=== PATIENT | male | born 1985 | race Two or more races ===

== ENCOUNTER 2018-03-18 10:08 | Emergency (ER) | payer SELFPAY ==
[~2018-03-18] VITALS: Ht 180.3 cm; Wt 105.0 kg
[2018-03-18] MEDS ORDERED: ASPIRIN 81 MG TABLET CHEW ONE (10:42)
[2018-03-18] MEDS ORDERED: ASPI-496 PO (10:53)
[2018-03-18] MEDS ORDERED: ASPIRIN 81 MG TABLET CHEW PO ONE (11:00)
[2018-03-18] MEDS ORDERED: LIDOCAINE-MPF 1%, 5ML ONE (11:00)
[2018-03-18 11:03] LABS: BASOPHILS # (AUTO) 0.04 x10^3/uL (0-0.1); BASOPHILS % (AUTO) 0 % (0-1); EOSINOPHILS # (AUTO) 0.12 x10^3/uL (0-0.4); EOSINOPHILS % (AUTO) 1 % (1-7); LYMPHOCYTES # (AUTO) 2.62 x10^3/uL (1-3.4); LYMPHOCYTES % (AUTO) 30 % (22-44); MD NO; MEAN CORPUSCULAR HEMOGLOBIN 30.9 pg (27.5-34.5); MEAN CORPUSCULAR HGB CONC 34.5 g/dL (33.2-36.2); MEAN CORPUSCULAR VOLUME 89.4 fL (81-97); MEAN PLATELET VOLUME 7.8 fL (7.4-10.4); MONOCYTES # (AUTO) 0.54 x10^3/uL (0.2-0.8); MONOCYTES % (AUTO) 6 % (2-9); NEUTROPHILS # (AUTO) 5.35 x10^3/uL (1.8-6.8); NEUTROPHILS % (AUTO) 62 % (42-75); PLATELET COUNT 299 x10^3/uL (130-400); RED BLOOD COUNT 5.33 x10^6/uL (4.38-5.82); RED CELL DISTRIBUTION WIDTH 12.5 % (9.4-14.8)
[2018-03-18 11:14] LABS: ALBUMIN 3.9 g/dL (3.4-5.0); ANION GAP 7 mmol/L (5-15); CALCIUM 8.6 mg/dL (8.5-10.1); CHLORIDE 112 mmol/L (98-107)
[2018-03-18 11:20] LABS: ALANINE AMINOTRANSFERASE 34 U/L (12-78); ALKALINE PHOSPHATASE 79 U/L (45-117); BILIRUBIN,TOTAL 0.3 mg/dL (0.2-1.0); CREATININE 0.67 mg/dL (0.7-1.3); TOTAL PROTEIN 7.4 g/dL (6.4-8.2); TROPONIN I < 0.015 ng/mL (0.000-0.045)
[2018-03-18 12:19] VITALS: BP 100/69
== END 2018-03-18 12:21 | disposition home or self-care (01) ==
LOC: ED 11:17
DX: M79.622 Pain in left upper arm (principal); L72.3 Sebaceous cyst; I25.2 Old myocardial infarction
CPT/HCPCS: 10060; 36415; 71046; 80053; 83880; 84484; 85025; 93005; 99284